=== PATIENT | female | born 1960 | race Caucasian/White ===

== ENCOUNTER → 2018-05-04 | Outpatient (CLI) | payer OTHER ==
[~2018-05-04] MED LIST: ALLO100T PO; AMLO10TA PO; ATEN100T PO; COLC1TAB14 PO; HYDR25TAB PO; LEVO100T5 PO; TRIA37.5 PO; TYLE325T5 PO
--- NOTE | 2018-05-04 18:11 | REP ---
Clinical: Shortness of breath . Comparison: 09/09/2015 for . Technique: PA and lateral. Findings: The mediastinum and cardiac silhouette are normal. The lung larios are clear and without acute consolidation, effusion, or pneumothorax. The skeletal structures are intact and normal. Impression: 1. No acute cardiopulmonary process. Electronically Signed by Bryan Lozano MD 05/04/2018 06:02 P
== END ==
LOC: M WUC 17:49
PROVIDERS: ATTEND Physician Assistant
DX: R06.02 Shortness of breath (principal)

== ENCOUNTER 2018-12-26 11:50 | Emergency (ER) | payer OTHER ==
[~2018-12-26] VITALS: Ht 167.6 cm; Wt 113.6 kg
[~2018-12-26 11:50] MED LIST changes: +HYDR-2541 PO; -HYDR25TAB PO
[2018-12-26] MEDS ORDERED: AMLO10TA5 (11:59)
[2018-12-26] MEDS ORDERED: GABA-843 (11:59)
[2018-12-26] MEDS ORDERED: ATEN50TA2 (11:59)
[2018-12-26] MEDS ORDERED: LEVO150T7 (11:59)
--- NOTE | 2018-12-26 12:41 | REP ---
The brain without contrast: History: CVA. Comparison brain CT study is from December 26, 2014. CT findings: Preliminary digital tyre fitter radiograph is unremarkable. Bony calvarium is intact. Visualized paranasal sinuses are clear. No intraorbital abnormality is seen. There is minimal generalized volume loss. Hayden-white differentiation pattern is normal above below the tentorium.. There is no evidence of intracranial hemorrhage. No infarct, mass, extra-axial fluid collection, or midline shift is seen. Impression: Minimal generalized volume loss. Otherwise negative noncontrast head CT. No acute intracranial abnormality seen. Electronically Signed by Jonas Ivey MD 12/26/2018 12:39 P
--- NOTE | 2018-12-26 12:48 | REP ---
Portable chest x-ray: Single view. History: CVA. Comparison chest x-ray: May 04, 2018. Findings: EKG monitoring electrodes overlie the chest. Heart is not enlarged. Pulmonary vasculature is not increased. No significant bony abnormality. Impression: Negative portable chest x-ray. Electronically Signed by Jonas Ivey MD 12/26/2018 12:39 P
[2018-12-26 13:06] LABS: BASO % 0.4 % (0.0-1.0); EOS # 0.2 10^3/uL (0.0-0.50); EOS % 3.1 % (0.0-3.0); HEMATOCRIT 40.2 % (36.0-47.0); HEMOGLOBIN 13.4 g/dl (12.0-15.5); LYMPH # 1.8 10^3/uL (1.5-4.5); MEAN CORPUSCULAR HEMOGLOBIN 31.6 pg (27.0-33.0); MEAN CORPUSCULAR HGB CONC 33.3 g/dl (32.0-36.5); MEAN CORPUSCULAR VOLUME 94.8 fl (80.0-96.0); MONO # 0.6 10^3/uL (0.0-0.8); MONO % 8.3 % (0.0-5.0); NEUTROPHILS # 4.3 10^3/uL (1.8-7.7); NEUTROPHILS % 61.9 % (36.0-66.0); PLATELET COUNT, AUTOMATED 190 10^3/uL (150-450); RED BLOOD COUNT 4.24 10^6/uL (4.00-5.40); WHITE BLOOD COUNT 6.9 10^3/uL (4.0-10.0)
[2018-12-26 13:17] LABS: INR 0.95; PROTHROMBIN TIME 12.4 SECONDS (11.8-14.0)
[2018-12-26] MEDS ORDERED: diphenhydrAMINE INJ 50MG/ML VIAL (J1200) IV STA (13:25)
[2018-12-26 13:30] LABS: BLOOD UREA NITROGEN 17 MG/DL (7-18); CALCIUM LEVEL 8.6 MG/DL (8.5-10.1); CARBON DIOXIDE LEVEL 28 MEQ/L (21-32); CHLORIDE LEVEL 106 MEQ/L (98-107); CK-MB VALUE MASS 5.2 NG/ML (<3.6); CPK CREATINE PHOSPHOKINASE 257 U/L (26-192); CREATININE FOR GFR 0.86 MG/DL (0.55-1.30); GLOMERULAR FILTRATION RATE > 60.0 (>51); GLUCOSE, FASTING 91 MG/DL (70-100); MB/CK RELATIVE INDEX 2.02 (< OR =4); POTASSIUM SERUM 4.1 MEQ/L (3.5-5.1); SODIUM LEVEL 140 MEQ/L (136-145); TROPONIN I < 0.02 NG/ML (< 0.10)
[2018-12-26] MEDS ORDERED: METOCLOPRAMIDE INJ 10MG/2ML VIAL (J2765) IV ONE (13:30)
--- NOTE | 2018-12-26 18:12 | REPVR ---
EXAM: MR Head Without Contrast EXAM DATE/TIME: 12/26/2018 5:08 PM CLINICAL HISTORY: 58 years old, female; Dizziness; Additional info: Vision changes, lightheaded, leg weakness TECHNIQUE: Imaging protocol: MR of the head without contrast. COMPARISON: MRI-Brain without Contrast 12/27/2014 12:18 PM FINDINGS: Brain: Minimal foci of T2 lengthening in the periventricular and centrum semiovale white matter likely indicative of small vessel vasculopathy. Ventricles: Normal. No ventriculomegaly. Bones/joints: Unremarkable. Soft tissues: Normal. Sinuses: Mild inflammatory changes in the ethmoid sinuses. Mastoid air cells: Normal as visualized. No mastoid effusion. Orbits: Unremarkable. IMPRESSION: 1. Minimal foci of T2 lengthening in the periventricular and centrum semiovale white matter likely indicative of small vessel vasculopathy. 2. No acute findings. Electronically signed by: James Geronimo On 12/26/2018 18:12:13 PM
--- NOTE | 2018-12-26 18:18 | REPVR ---
EXAM: MR Angiogram Head Without Contrast, Arteries EXAM DATE/TIME: 12/26/2018 5:08 PM CLINICAL HISTORY: 58 years old, female; Dizziness and giddiness; Additional info: Vision changes, lightheaded, leg weakness TECHNIQUE: Imaging protocol: MR angiogram head without contrast. Exam focused on the arteries. 3D rendering: MIP reconstructed images were created and reviewed. COMPARISON: MRA BRAIN W/O CONTRAST 12/27/2014 12:09 PM FINDINGS: Right internal carotid artery: Unremarkable. Intracranial segment is patent with no significant stenosis. No aneurysm. Right anterior cerebral artery: Unremarkable. No occlusion or significant stenosis. No aneurysm. Right middle cerebral artery: Unremarkable. No occlusion or significant stenosis. No aneurysm. Right posterior cerebral artery: Unremarkable. No occlusion or significant stenosis. No aneurysm. Right vertebral artery: Unremarkable. No occlusion or significant stenosis. No aneurysm. Left internal carotid artery: Unremarkable. Intracranial segment is patent with no significant stenosis. No aneurysm. Left anterior cerebral artery: Unremarkable. No occlusion or significant stenosis. No aneurysm. Left middle cerebral artery: Unremarkable. No occlusion or significant stenosis. No aneurysm. Left posterior cerebral artery: Moderate narrowing of the left P1 segment of the posterior cerebral artery. Otherwise unremarkable. Left vertebral artery: Unremarkable. No occlusion or significant stenosis. No aneurysm. Basilar artery: Unremarkable. No occlusion or significant stenosis. No aneurysm. IMPRESSION: 1. Moderate narrowing of the left P1 segment of the posterior cerebral artery. 2. Otherwise unremarkable. Electronically signed by: James Geronimo On 12/26/2018 18:17:53 PM
[2018-12-26 19:31] VITALS: BP 138/85
--- NOTE | 2018-12-27 10:20 | ECGEPIP ---
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
--- NOTE | 2018-12-28 14:34 | ED PDOC ---
Post-Departure Follow-Up thi daily faxed formal report of mri brain for fu Mike Coates MD Dec 28, 2018 14:34
== END 2018-12-26 19:33 | disposition home or self-care (01) ==
LOC: M ED 11:50
DX: R51 Headache (principal); I45.10 Unspecified right bundle-branch block; I10 Essential (primary) hypertension; Z79.52 Long term (current) use of systemic steroids; Z79.899 Other long term (current) drug therapy; Z91.030 Bee allergy status; Z88.8 Allergy status to other drugs, medicaments and biological substances
CPT/HCPCS: 70450; 70544; 70551; 71045; 80048; 82550; 82553; 84443; 84484; 85025; 85610; 85730; 86850; 86900; 86901; 93005; 93041; 94760; 96374; 96375; 99285; J1200; J2765; J3360

== ENCOUNTER → 2020-02-01 | Outpatient (CLI) | payer BC ==
[~2020-02-01] MED LIST changes: +AMLO1TAB25; +ATEN50TA2; +GABA-843; +LEVO150T7
== END ==
LOC: M LABSMTC 09:34
PROVIDERS: ATTEND Orthopaedic Surgery
DX: Z01.812 Encounter for preprocedural laboratory examination (principal); Z20.828 Contact with and (suspected) exposure to other viral communicable diseases

== ENCOUNTER → 2020-02-24 | Outpatient (CLI) | payer BC | LOC: M LABSMTC 10:45 | PROVIDERS: ATTEND Orthopaedic Surgery | DX: Z01.812 Encounter for preprocedural laboratory examination (principal); Z20.828 Contact with and (suspected) exposure to other viral communicable diseases ==